=== PATIENT | male | born 2000 | race Caucasian/White ===

== ENCOUNTER 2024-07-15 08:10 | Emergency (ER) | payer OTHER, SELFPAY ==
--- NOTE | ~2024-07-15 | XR_ITS ---
Left ankle Technique: AP, oblique, and lateral views were obtained. Clinical History: Pain Findings: No acute fracture or dislocation is seen. Osseous alignment is anatomic. Ankle mortise and other visualized joint spaces are preserved. Soft tissues are otherwise unremarkable. Impression: Unremarkable left ankle. Reviewed, dictated and finalized at location . GER APPOINTMENT Impression: Unremarkable left ankle.
--- NOTE | ~2024-07-15 | XR_ITS ---
Left foot Technique: AP, oblique, and lateral views were obtained. Clinical History: Pain Findings: No acute fracture or dislocation is seen. Osseous alignment is anatomic. Joint spaces are p reserved without erosive or degenerative change. Soft tissues are unremarkable. Impression: Unremarkable left foot radiographs. Reviewed, dictated and finalized at location . T SEWER Impression: Unremarkable left foot radiographs.
[2024-07-15 08:20] VITALS: BP 162/90; PULSE 81; RESP 18; TEMP 36.4; O2SAT 100
--- NOTE | 2024-07-15 08:35 | ED.GENADULT ---
HPI - General Adult General Chief complaint: Extremity Injury, Lower Stated complaint: left ankle injury Time Seen by Provider: 07/15/24 08:20 History of Present Illness HPI narrative: patient is a 24-year-old gentleman who presents emergency department with chief complaint of left ankle and foot injury. Patient reports that he was rock climbing and came down on a soft mat and rolled his left ankle patient states that he heard a pop and noticed there is bruising present on the lateral aspect of his ankle patient does report that it hurts into the lateral foot the patient today decided to come to the emergency department as it was still having pain and there was bruising present Related Data Allergies Allergy/AdvReac Type Severity Reaction Status Date / Time No Known Allergies Allergy Verified 11/28/18 22:34 Review of Systems Review of Systems: A 10 system review of systems was completed on the patient and is negative except for what is stated in the HPI. Nursing and ancillary documentation was reviewed. Exam Narrative: GENERAL: Well-appearing, well-nourished, and in no acute distress. HEAD: Normocephalic, atraumatic. EYES: PERRLA and EOMI. ENT: Nares clear, no rhinorrhea or epistaxis. Mucous membranes moist. NECK: Supple. CHEST: Clear to auscultation. No respiratory distress. HEART: Regular rate and rhythm. No murmur heard. Normal peripheral pulses. ABDOMEN: Soft, nontender, nondistended, normal active bowel sounds. EXTREMITIES: Normal range of motion there is tenderness to palpation of the lateral malleolus of the left ankle there is slight swelling there is bruising present to the dorsum of the foot and ankle. No edema. SKIN: Warm, dry, no rash. NEURO: No focal deficits. Alert and oriented x3. PSYCH: Normal mood and affect. Course Vital Signs Vital signs: Vital Signs Temperature 36.4 C L 07/15/24 08:20 Pulse Rate 81 07/15/24 08:20 Respiratory Rate 18 07/15/24 08:20 Blood Pressure 162/90 H 07/15/24 08:20 Pulse Oximetry 100 07/15/24 08:20 Oxygen Delivery Room Air 07/15/24 08:20 Temperature 36.4 C L 07/15/24 08:20 Pulse Rate 81 07/15/24 08:20 Respiratory Rate 18 07/15/24 08:20 Blood Pressure 162/90 H 07/15/24 08:20 Pulse Oximetry 100 07/15/24 08:20 Oxygen Delivery Room Air 07/15/24 08:20 Medical Decision Making MDM Narrative Medical decision making narrative: differential diagnosis includes ankle fracture, ankle sprain, foot sprain, Clark fracture, pseudo Clark fracture plain film x-rays were obtained of the ankle and foot showed no evidence of fracture Vital Signs Vital Signs: Vital Signs Temperature 36.4 C L 07/15/24 08:20 Pulse Rate 81 07/15/24 08:20 Respiratory Rate 18 07/15/24 08:20 Blood Pressure 162/90 H 07/15/24 08:20 Pulse Oximetry 100 07/15/24 08:20 Oxygen Delivery Room Air 07/15/24 08:20 Temperature 36.4 C L 07/15/24 08:20 Pulse Rate 81 07/15/24 08:20 Respiratory Rate 18 07/15/24 08:20 Blood Pressure 162/90 H 07/15/24 08:20 Pulse Oximetry 100 07/15/24 08:20 Oxygen Delivery Room Air 07/15/24 08:20 Discharge Plan Discharge Clinical Impression: Left ankle sprain Patient Disposition: Home, Self-Care Condition: Stable Instructions: Antibiotic Form, Ankle Sprain (ED) Patient Language: [place]i Follow-up/Referrals: PHYSICIAN,ALTERNATIVE DISPUTE RESOLUTION MEDIATOR [Primary Care Provider] - Loc Nelson MD [Physician] - Time of Disposition: 09:17
[2024-07-15 09:21] VITALS: BP 135/87; PULSE 77; RESP 16; TEMP 36.5; O2SAT 100
== END 2024-07-15 09:31 | disposition home or self-care (01) ==
PROVIDERS: Emergency Provider Emergency Medicine
DX: S93.402A Sprain of unspecified ligament of left ankle, initial encounter (principal); X50.9XXA Other and unspecified overexertion or strenuous movements or postures, initial encounter
CPT/HCPCS: 73610; 73630; 99283